=== PATIENT | female | born 1990 | race Two or more races ===

== ENCOUNTER → 2025-06-20 | Outpatient (CLI) | payer BC ==
[~2025-06-20] VITALS: Ht 149.9 cm; Wt 63.5 kg
[2025-06-20 11:31] LABS: Hematocrit 42.2 % (36.0-46.0); Hemoglobin 14.6 g/dL (12.2-16.2); Mean Corpuscular Hemoglobin 29.4 pg (28.0-32.0); Mean Corpuscular Volume 85.2 fL (80.0-100.0); Nucleated Red Blood Cells % 0.1 %
[2025-06-20 11:44] LABS: INR 1.0 (0.9-1.15); Partial Thromboplastin Time 28.4 SEC (24.5-34.5); Prothrombin Time 10.6 sec (9.3-11.8)
[2025-06-20 12:03] LABS: Alanine Aminotransferase 37 U/L (7-40); Alkaline Phosphatase 100 U/L (46-116); Anion Gap 7 (5-15); BUN/Creatinine Ratio 13.2 (10.0-20.0); Blood Urea Nitrogen 9 mg/dL (9-23); Calcium 9.0 mg/dL (8.7-10.4); Carbon Dioxide 27 mmol/L (20-31); Chloride 107 mmol/L (98-107); Glucose 91 mg/dL (74-106); Potassium 4.1 mmol/L (3.5-5.1); Sodium 141 mmol/L (136-145); Total Protein 7.6 g/dL (5.7-8.2)
[2025-06-20 12:04] LABS: Albumin 4.9 g/dL (3.2-4.8); Bilirubin, Total 0.5 mg/dL (0.2-1.0)
[2025-06-20 12:13] LABS: Urine Protein, UAD Negative (Negative)
--- NOTE | 2025-06-20 22:58 | DVHHP ---
ADMIT DATE: 06/23/2025 CHIEF COMPLAINT: Desires bilateral tubal sterilization. HISTORY OF PRESENT ILLNESS: The patient is a 34-year-old female admitted for laparoscopic placement of tubal sterilization. PAST MEDICAL HISTORY: None. PAST SURGICAL HISTORY: Right ovarian cystectomy. SOCIAL HISTORY: None. FAMILY HISTORY: None. OB-DRAFTER PATENT HISTORY: Three normal vaginal deliveries. ALLERGIES: No known drug allergies. REVIEW OF SYSTEMS: Consistent with HPI. PHYSICAL EXAMINATION: VITAL SIGNS: Stable. HEENT: Within normal limits. CARDIOVASCULAR: Regular rate and rhythm. LUNGS: Clear to auscultation. BREASTS: Symmetric. No masses. ABDOMEN: Soft, nontender. PELVIC EXAM: External genitalia within normal limits. Cervix grossly normal appearing. Uterus 8 weeks size. Adnexa non-palpable. EXTREMITIES: No clubbing, cyanosis, or edema. IMPRESSION: Multiparity, desires tubal sterilization. PLAN: Laparoscopic placement of Filshie clips. Informed consent obtained. Risks, complications, and failures discussed with the patient. The patient expresses full understanding and wishes to proceed with planned procedure. DO SENG Jurado TID: [id number] RECEIPT: [id number]
== END | disposition home or self-care (01) ==
LOC: LAB 11:08 → EDSTATUS 06-23 08:30
PROVIDERS: ATTEND Obstetrics & Gynecology
DX: Z01.818 Encounter for other preprocedural examination (principal)
CPT/HCPCS: 36415; 80053; 81001; 81025; 84702; 85025; 85610; 85730; 86850; 86900; 86901